=== PATIENT | female | born 1995 | race Caucasian/White ===

== ENCOUNTER 2016-03-10 09:06 | Outpatient (CLI) ==
[2012-08-25 16:06] VITALS: TEMP 97.8
[2013-04-18 19:50] VITALS: BMI 19.3
== END 2016-03-10 09:07 | disposition home or self-care (01) ==
LOC: LAB 09:06
PROVIDERS: ATTEND Family Medicine
DX: R63.5 Abnormal weight gain (principal); Z83.49 Family history of other endocrine, nutritional and metabolic diseases
CPT/HCPCS: 36415; 84439; 84443; 84481

== ENCOUNTER 2016-06-30 14:41 | Outpatient (CLI) ==
[2012-08-25 16:06] VITALS: TEMP 97.8
[2013-04-18 19:50] VITALS: BMI 19.3
[2016-06-30 15:07] LABS: BASOPHILS % (AUTO) 0.8 % (0.0-3.0); EOSINOPHILS % (AUTO) 0.8 % (0.0-7.0); HEMATOCRIT 42.2 % (37.0-47.0); HEMOGLOBIN 14.3 g/dl (12.0-16.0); IMMATURE GRANULOCYTE % (AUTO) 0.5 % (0.0-5.0); LYMPHOCYTES # (AUTO) 1.2 K/uL (0.60-3.4); LYMPHOCYTES % (AUTO) 32.7 (10.0-50.0); MEAN CORPUSCULAR HEMOGLOBIN 29.5 pg (27.0-31.0); MEAN CORPUSCULAR HGB CONC 33.9 (31.8-35.4); MONOCYTES # (AUTO) 0.6 K/uL (0.4-2.0); MONOCYTES % (AUTO) 15.4 (0-10); NEUTROPHILS # (AUTO) 1.9 K/ul (2.0-6.9); NEUTROPHILS % (AUTO) 49.8; PLATELET COUNT 216 10^3/uL (140-440); RED BLOOD COUNT 4.85 10^6/ul (4.20-5.40); WHITE BLOOD COUNT 3.76 K/ul (4.6-10.2)
[2016-06-30 15:19] LABS: ALBUMIN 3.4 g/dL (3.7-5.6); ANION GAP 11.5; BILIRUBIN,TOTAL 0.33 mg/dL (0.60-1.40); BUN/CREATININE RATIO 12.65; CALCIUM 8.8 mg/dL (8.2-10.2); CREATININE 0.79 mg/dL (0.60-1.30); POTASSIUM 3.5 mmol/L (3.5-5.10); TOTAL PROTEIN 6.8 g/dL (6.4-8.2)
== END 2016-06-30 14:42 | disposition home or self-care (01) ==
LOC: LAB 14:41
PROVIDERS: ATTEND Family Medicine
DX: N39.0 Urinary tract infection, site not specified (principal); M54.9 Dorsalgia, unspecified; R10.9 Unspecified abdominal pain
CPT/HCPCS: 36415; 80053; 85025

== ENCOUNTER 2017-01-25 17:56 | Outpatient (CLI) ==
[2012-08-25 16:06] VITALS: TEMP 97.8
[2013-04-18 19:50] VITALS: BMI 19.3
[2017-01-25 18:23] LABS: BILIRUBIN,URINE Negative (NEGATIVE); KETONES,URINE Negative (NEGATIVE); LEUKOCYTE ESTERASE ,URINE Negative (NEGATIVE); NITRITE,URINE Negative (NEGATIVE); PH,URINE 6.5 (5-9); PROTEIN,URINE Negative (NEGATIVE); URINE, BLOOD 2+ (NEGATIVE)
[2017-01-25 18:31] LABS: ADD URINE MICROSCOPIC YES
[2017-01-25 18:32] LABS: BACTERIA,URINE TRACE (NOT PRESENT)
== END 2017-01-25 17:57 | disposition home or self-care (01) ==
LOC: LAB 17:56
DX: N39.0 Urinary tract infection, site not specified (principal)
CPT/HCPCS: 81001; 87086

== ENCOUNTER 2017-10-24 20:26 | Emergency (ER) ==
[2017-10-24 20:34] VITALS: BP 130/80; TEMP 97.5; BMI 26.9
[2017-10-24] MEDS ORDERED: ATIVAN PO STA (20:59)
--- NOTE | 2017-10-24 22:18 | ED.PDOC ---
General ED Provider: Dr. CLAY ANN-ER Chief Complaint: Non-specific Complaint Stated Complaint: my heart is racing Time Seen by Physician: 20:30 Mode of Arrival: Walk-In Information Source: Patient, Family Exam Limitations: No limitations Primary Care Provider: GABRIEL SETH Nursing and Triage Documentation Reviewed and Agree: Yes Does patient meet sepsis criteria?: No System Inflammatory Response Syndrome: Not Applicable Sepsis Protocol: For patient's 13 years and over: Temp is 96.8 and below OR 101 and greater Pulse >90 BPM Resp >20/minute Acutely Altered Mental Status Are patient's symptoms suggestive of a new infection, such as: -Pneumonia -Skin, Soft Tissue -Endocarditis -UTI -Bone, Joint Infection -Implantable Device -Acute Abdominal Infection -Wound Infection -Meningitis -Blood Stream Catheter Infection -Unknown Psychological Complaint Exam - Psychiatric Complaint/Exam Patient Complains Of: Present: Other Onset/Duration: today Symptoms Are: Still present Timing: Constant Initial Severity: Mild Current Severity: Mild Character: Present: Fearful, Anxious Aggravating: Reports: None Associated Signs And Symptoms: Denies: Hostile, Confused, Hallucinating, Paranoid behavior, Sleep disturbance, Appetite change Completed Suicide Risk Factors: None Patient Accompanied By: Family Patient In Custody Of Police: No Social Withdrawal Present: No Social Isolation Present: No Prior Suicide Attempt: No Injury From Prior Suicide Attempt: No Related Surgical History: Reports: None Patient Uncooperative For Exam: No Mood: Present: Anxious Appearance: Present: Clean Thought Process: Present: Logical Insight: Present: Good Memory: Intact Judgement: Normal Danger To Others: No Patient Medically Stable For: Psych evaluation Differential Diagnoses: Anxiety Review of Systems - Review Of Systems Constitutional: Reports: No symptoms Eyes: Reports: No symptoms Ears, Nose, Mouth, Throat: Reports: No symptoms Respiratory: Reports: No symptoms Cardiac: Reports: Lightheadedness GI: Reports: No symptoms : Reports: No symptoms Musculoskeletal: Reports: No symptoms Skin: Reports: No symptoms Neurological: Reports: Anxiety Endocrine: Reports: No symptoms Hematologic/Lymphatic: Reports: No symptoms All Other Systems: Reviewed and Negative Past Medical History - Past Medical History Previously Healthy: No Endocrine: Reports: Unknown Cardiovascular: Reports: Unknown Respiratory: Reports: Unknown Hematological: Reports: Unknown Gastrointestinal: Reports: Unknown Genitourinary: Reports: Unknown Neuro/Psych: Reports: Unknown Musculoskeletal: Reports: Unknown Cancer: Reports: Unknown Last Menstrual Period: 4 days ago - Surgical History General Surgical History: Reports: Unknown - Family History Family History: Reports: Unknown - Social History Smoking Status: Never smoker Hx Substance Use: No Alcohol Screening: Occasionally - Immunizations Tetanus Shot up to Date: Yes Physical Exam - Physical Exam Appearance: Well-appearing, No pain distress, Well-nourished Eyes: BONG, EOMI, Conjunctiva clear ENT: Ears normal, Nose normal, Oropharynx normal Respiratory: Airway patent Cardiovascular: RRR, Pulses normal, No rub, No murmur GI/: Soft Musculoskeletal: Normal strength, ROM intact, No edema, No calf tenderness Skin: Warm, Dry, Normal color Neurological: Sensation intact, Motor intact, Reflexes intact, Cranial nerves intact, Alert, Oriented Psychiatric: Affect appropriate, Mood appropriate, Anxious Re-Evaluation - Re-Evaluation Time of Re-Evaluation: 22:18 Status: Improved Vital Signs Stable: Yes Pain Level: 0 Lungs: Clear Skin: Warm and Dry Neuro: Alert and Oriented X3 CV: RRR Critical Care Note - Critical Care Note Total Time (mins): 0 Course - Course Hematology/Chemistry: 10/24/17 21:02 10/24/17 21:02 Orders, Labs, Meds: Lab Review 10/24/17 10/24/17 10/24/17 20:00 20:00 20:00 WBC RBC Hgb Hct MCV MCH MCHC RDW Coeff of June Plt Count Immature Gran % (Auto) Neut % (Auto) Lymph % (Auto) [place] % (Auto) Eos % (Auto) Baso % (Auto) Immature Gran # (Auto) Neut # (Auto) Lymph # (Auto) [place] # (Auto) Eos # (Auto) Baso # (Auto) D-Dimer (Manual) Sodium Potassium Chloride Carbon Dioxide Anion Gap BUN Creatinine Estimated GFR (MDRD) BUN/Creatinine Ratio Glucose Calcium Magnesium Total Bilirubin AST ALT Alkaline Phosphatase Total Protein Albumin Globulin Albumin/Globulin Ratio TSH Free T4 Urine Color Yellow Urine Clarity Clear Urine pH 6.5 Ur Specific [place] 1.020 Urine Protein Negative Urine Glucose (UA) Negative Urine Ketones Negative Urine Blood 1+ Urine Nitrite Negative Urine Bilirubin Negative Urine Urobilinogen 0.2 Ur Leukocyte Esterase Negative Urine Microscopic RBC 2-5 Urine Microscopic WBC 0-2 Ur Squamous Epith Cells 2-5 Urine Test Negative Urine Opiates Screen Negative Ur Oxycodone Screen Negative Urine Methadone Screen Negative Ur Propoxyphene Screen Negative Ur Barbiturates Screen Negative U Tricyclic Antidepress Negative Ur Phencyclidine Scrn Negative Ur Amphetamine Screen Negative U Methamphetamines Scrn Negative U Benzodiazepines Scrn Negative Urine Cocaine Screen Negative U Cannabinoids Screen Negative 10/24/17 10/24/17 10/24/17 21:02 21:02 21:02 WBC 7.76 RBC 4.50 Hgb 13.5 Hct 40.0 MCV 88.9 MCH 30.0 MCHC 33.8 RDW Coeff of June 12.2 Plt Count 255 Immature Gran % (Auto) 0.6 Neut % (Auto) 46.9 Lymph % (Auto) 40.3 [place] % (Auto) 8.0 Eos % (Auto) 3.6 Baso % (Auto) 0.6 Immature Gran # (Auto) 0.1 Neut # (Auto) 3.6 Lymph # (Auto) 3.1 [place] # (Auto) 0.6 Eos # (Auto) 0.3 Baso # (Auto) 0.1 D-Dimer (Manual) 210.15 Sodium 139 Potassium 3.5 Chloride 104 Carbon Dioxide 28 Anion Gap 10.5 BUN 11 Creatinine 0.67 Estimated GFR (MDRD) 112.00 BUN/Creatinine Ratio 16.41 Glucose 109 Calcium 9.1 Magnesium 2.1 Total Bilirubin 0.2 AST 15 ALT 12 Alkaline Phosphatase 104 H Total Protein 6.7 Albumin 3.3 L Globulin 3.4 Albumin/Globulin Ratio 0.97 TSH 1.448 Free T4 0.96 Urine Color Urine Clarity Urine pH Ur Specific [place] Urine Protein Urine Glucose (UA) Urine Ketones Urine Blood Urine Nitrite Urine Bilirubin Urine Urobilinogen Ur Leukocyte Esterase Urine Microscopic RBC Urine Microscopic WBC Ur Squamous Epith Cells Urine Test Urine Opiates Screen Ur Oxycodone Screen Urine Methadone Screen Ur Propoxyphene Screen Ur Barbiturates Screen U Tricyclic Antidepress Ur Phencyclidine Scrn Ur Amphetamine Screen U Methamphetamines Scrn U Benzodiazepines Scrn Urine Cocaine Screen U Cannabinoids Screen Orders Category Date Time Status EKG-(ED ONLY) Stat CARDIO 10/24/17 20:58 Ordered Preparer [ED CARPENTER FORM APPLIED] .ONCE EMERGENCY 10/24/17 20:59 Active CBC W/ AUTO DIFF Stat LAB 10/24/17 21:02 Completed COMPREHENSIVE METABOLIC PANEL Stat LAB 10/24/17 21:02 Completed D-DIMER Stat LAB 08/19/18 21:02 Completed FREE T4 (FREE THYROXINE) Stat LAB 10/24/17 21:02 Completed MAGNESIUM Stat LAB 10/24/17 21:02 Completed TSH [THYROID STIMULATING HORMONE] Stat LAB 10/24/17 21:02 Completed URINALYSIS C & S IF INDICATED Stat LAB 10/24/17 20:00 Completed URINE DRUG SCREEN (RAPID FOR ED) [DRUG SCREEN, URINE, LAB 10/24/17 20:00 Completed RAPID] Stat URINE Stat LAB 10/24/17 20:00 Completed Lorazepam [Ativan] MEDS 10/24/17 20:59 Discontinued 1 mg PO ONCE STA Medications Discontinued Medications Generic Name Dose Route Start Last Admin Trade Name Freq PRN Reason Stop Dose Admin Lorazepam 1 mg 10/24/17 20:59 10/24/17 21:04 Ativan PO 10/24/17 21:00 1 mg ONCE STA Administration Vital Signs: Temp Pulse Resp BP Pulse Ox 10/24/17 20:27 97.5 F L 91 H 20 130/80 98 Departure - Departure Time of Disposition: 22:18 Disposition: HOME SELF-CARE Discharge Problem: Anxiety Instructions: Generalized Anxiety Disorder (ED) Condition: Good Pt referred to PMD for follow-up: Yes IPMP verified?: No Additional Instructions: ativan 1mg daily prn anxiety#10--f/u with dr seth Allergies/Adverse Reactions: Allergies No Known Allergies Allergy (Verified 10/24/17 20:33) Home Medications: Ambulatory Orders Methylphenidate HCl [Concerta] 36 mg PO DAILY 08/25/12 Fluoxetine HCl [Prozac] 40 mg PO DAILY 10/24/17 Levonorgestrel-Ethin Estradiol [Lutera-28 Tablet] 1 each PO DAILY 10/24/17 Sulfamethoxazole/Trimethoprim [Bactrim Ds Tablet] 1 tab PO DAILY 10/24/17 Disposition Discussed With: Patient, Family
== END 2017-10-24 22:22 | disposition home or self-care (01) ==
LOC: ED 20:26
DX: F41.9 Anxiety disorder, unspecified (principal)
CPT/HCPCS: 36415; 80053; 80306; 81001; 81025; 83735; 84439; 84443; 85025; 85379; 93005; 93010; 99283

== ENCOUNTER 2018-01-08 00:39 | Emergency (ER) ==
[2018-01-08 00:41] VITALS: BP 129/80; TEMP 97.3; BMI 25.0
[2018-01-08] MEDS ORDERED: NORFLEX IM STA (00:52)
[2018-01-08] MEDS ORDERED: TORADOL IM STA (00:52)
[2018-01-08] MEDS ORDERED: BENTYL IM STA (00:55)
--- NOTE | 2018-01-08 01:55 | DI ---
EXAM: PA and lateral views of the chest. HISTORY: Chest wall pain. FINDINGS: There is dextroscoliosis of the thoracolumbar spine. The visualized bones are intact. The cardiac silhouette and pulmonary vasculature are within normal limits. The costophrenic angles are c lear. No infiltrate or consolidation. No pneumothorax. Impression: No acute cardiopulmonary disease. Dextroscoliosis of the thoracolumbar spine.
--- NOTE | 2018-01-08 01:56 | DI ---
EXAM: Abdomen one-view HISTORY: Abdomenal Pain FINDINGS: Normal bowel gas pattern. No pathologic calcifications. No large free intraperitoneal ga s. No abundance of retained colonic stool. Skeleton appears normal. IMPRESSION: Negative exam.
--- NOTE | 2018-01-08 02:34 | ED.PDOC ---
General ED Provider: Dr. CLAY ANN-ER Chief Complaint: Chest Wall Injury/Pain Stated Complaint: im hurting Time Seen by Physician: 00:40 Mode of Arrival: Walk-In Information Source: Patient, Family Exam Limitations: No limitations Primary Care Provider: GABRIEL SETH Nursing and Triage Documentation Reviewed and Agree: Yes Does patient meet sepsis criteria?: No System Inflammatory Response Syndrome: Not Applicable Sepsis Protocol: For patient's 13 years and over: Temp is 96.8 and below OR 101 and greater Pulse >90 BPM Resp >20/minute Acutely Altered Mental Status Are patient's symptoms suggestive of a new infection, such as: -Pneumonia -Skin, Soft Tissue -Endocarditis -UTI -Bone, Joint Infection -Implantable Device -Acute Abdominal Infection -Wound Infection -Meningitis -Blood Stream Catheter Infection -Unknown GI Complaint Exam - Abdominal Pain Complaint/Exam Onset: Gradual Duration: several min Symptoms Are: Still present Timing: Constant Initial Severity: Mild Current Severity: Mild Location of Pain: Discrete, Epigastric Character: Reports: Dull, Aching, Cramping, Colicky Aggravating: Reports: Movement, Deep breaths Alleviating: Reports: Spontaneous resolution Associated Signs and Symptoms: Denies: Diaphoresis, Fever, Cough, Chest pain, Dizziness, Back pain, Constipation, Blood in stool, Dysuria, Urinary frequency, Decreased urine output, Decreased appetite, Vaginal bleeding, Vaginal discharge , Nausea, Vomiting, Diarrhea, Sore throat, Decreased activity Abdominal Findings: Present: Rebound tenderness Differential Diagnoses: Constipation, Pancreatitis Quality Indicator For Non-Traumatic Chest Pain/Syncope: EKG Performed Review of Systems - Review Of Systems Constitutional: Reports: No symptoms Eyes: Reports: No symptoms Ears, Nose, Mouth, Throat: Reports: No symptoms Respiratory: Reports: No symptoms Cardiac: Reports: Chest pain GI: Reports: No symptoms : Reports: No symptoms Musculoskeletal: Reports: No symptoms Skin: Reports: No symptoms Neurological: Reports: No symptoms Endocrine: Reports: No symptoms Hematologic/Lymphatic: Reports: No symptoms All Other Systems: Reviewed and Negative Past Medical History - Past Medical History Previously Healthy: No Endocrine: Reports: Unknown Cardiovascular: Reports: Unknown Respiratory: Reports: Unknown Hematological: Reports: Unknown Gastrointestinal: Reports: Unknown Genitourinary: Reports: Unknown Neuro/Psych: Reports: Unknown Musculoskeletal: Reports: Unknown Cancer: Reports: Unknown Last Menstrual Period: 1 week ago - Surgical History General Surgical History: Reports: Unknown - Family History Family History: Reports: Unknown - Social History Smoking Status: Never smoker Hx Substance Use: No Alcohol Screening: None - Immunizations Tetanus Shot up to Date: Yes Physical Exam - Physical Exam Appearance: Well-appearing, No pain distress, Well-nourished Pain Distress: Mild Eyes: BONG, EOMI, Conjunctiva clear ENT: Ears normal, Nose normal, Oropharynx normal Neck: Supple Respiratory: Airway patent, Breath sounds clear, Breath sounds equal, Respirations nonlabored Cardiovascular: RRR, Pulses normal, No rub, No murmur GI/: Soft Musculoskeletal: Normal strength, ROM intact, No edema, No calf tenderness Skin: Warm, Dry, Normal color Neurological: Sensation intact, Motor intact, Reflexes intact, Cranial nerves intact, Alert, Oriented Psychiatric: Affect appropriate, Mood appropriate Interpretation - Radiology Interpretation Radiology Interpretation By: Radiologist Radiology Results: Negative Exam Interpreted: CXR Re-Evaluation - Re-Evaluation Time of Re-Evaluation: 02:34 Status: Improved Vital Signs Stable: Yes Pain Level: 0 Appearance: NAD Lungs: Clear Skin: Warm and Dry Neuro: Alert and Oriented X3 CV: RRR Critical Care Note - Critical Care Note Total Time (mins): 0 Course - Course Hematology/Chemistry: 01/08/18 01:05 01/08/18 01:05 Orders, Labs, Meds: Lab Review 01/08/18 01/08/18 01/08/18 01:00 01:05 01:05 WBC 7.98 RBC 4.72 Hgb 14.0 Hct 41.1 MCV 87.1 MCH 29.7 MCHC 34.1 RDW Coeff of June 12.2 Plt Count 285 Immature Gran % (Auto) 0.9 Neut % (Auto) 48.9 Lymph % (Auto) 32.5 [place] % (Auto) 10.7 H Eos % (Auto) 6.0 Baso % (Auto) 1.0 Immature Gran # (Auto) 0.1 Neut # (Auto) 3.9 Lymph # (Auto) 2.6 [place] # (Auto) 0.9 Eos # (Auto) 0.5 Baso # (Auto) 0.1 ESR 11 D-Dimer (Manual) Sodium 137.6 Potassium 3.95 Chloride 100.1 Carbon Dioxide 31.8 H Anion Gap 9.65 BUN 9.8 Creatinine 0.59 L Estimated GFR (MDRD) 129.00 BUN/Creatinine Ratio 16.61 Glucose 98.4 Calcium 9.49 Total Bilirubin 0.36 AST 30.9 ALT 26.2 Alkaline Phosphatase 90.9 Total Protein 7.84 Albumin 4.52 Globulin 3.32 Albumin/Globulin Ratio 1.36 Amylase < 30.0 L Lipase 89.5 Serum , Qual Urine Color Yellow Urine Clarity Clear Urine pH 6.5 Ur Specific [place] 1.010 Urine Protein Negative Urine Glucose (UA) Negative Urine Ketones Negative Urine Blood 1+ Urine Nitrite Negative Urine Bilirubin Negative Urine Urobilinogen 0.2 Ur Leukocyte Esterase Negative Urine Microscopic RBC 5-10 Urine Microscopic WBC 0-2 Ur Squamous Epith Cells 0-2 Urine Bacteria Trace 01/08/18 01/08/18 01:05 01:05 WBC RBC Hgb Hct MCV MCH MCHC RDW Coeff of June Plt Count Immature Gran % (Auto) Neut % (Auto) Lymph % (Auto) [place] % (Auto) Eos % (Auto) Baso % (Auto) Immature Gran # (Auto) Neut # (Auto) Lymph # (Auto) [place] # (Auto) Eos # (Auto) Baso # (Auto) ESR D-Dimer (Manual) 209.72 Sodium Potassium Chloride Carbon Dioxide Anion Gap BUN Creatinine Estimated GFR (MDRD) BUN/Creatinine Ratio Glucose Calcium Total Bilirubin AST ALT Alkaline Phosphatase Total Protein Albumin Globulin Albumin/Globulin Ratio Amylase Lipase Serum , Qual Negative Urine Color Urine Clarity Urine pH Ur Specific [place] Urine Protein Urine Glucose (UA) Urine Ketones Urine Blood Urine Nitrite Urine Bilirubin Urine Urobilinogen Ur Leukocyte Esterase Urine Microscopic RBC Urine Microscopic WBC Ur Squamous Epith Cells Urine Bacteria Orders Category Date Time Status EKG-(ED ONLY) Stat CARDIO 01/08/18 00:51 Ordered AMYLASE Stat LAB 01/08/18 01:05 Completed CBC W/ AUTO DIFF Stat LAB 01/08/18 01:05 Completed COMPREHENSIVE METABOLIC PANEL Stat LAB 01/08/18 01:05 Completed D-DIMER Stat LAB 01/08/18 01:05 Completed ESR Stat LAB 01/08/18 01:05 Completed LIPASE Stat LAB 01/08/18 01:05 Completed SERUM Stat LAB 01/08/18 01:05 Completed URINALYSIS C & S IF INDICATED Stat LAB 01/08/18 01:00 Completed Dicyclomine Inj [Bentyl] MEDS 01/08/18 00:55 Discontinued 10 mg IM ONCE STA Ketorolac Tromethamine [Toradol] MEDS 01/08/18 00:52 Discontinued 60 mg IM ONCE STA Orphenadrine Citrate [Norflex] MEDS 01/08/18 00:52 Discontinued 60 mg IM ONCE STA ABDOMEN 1 VIEW Stat RADS 01/08/18 00:51 Completed CHEST, 2 VIEWS PA & LAT Stat RADS 01/08/18 00:51 Completed Medications Discontinued Medications Generic Name Dose Route Start Last Admin Trade Name Crystal PRN Reason Stop Dose Admin Dicyclomine HCl 10 mg 01/08/18 00:55 01/08/18 01:15 Bentyl IM 01/08/18 00:56 10 mg ONCE STA Administration Ketorolac Tromethamine 60 mg 01/08/18 00:52 01/08/18 01:15 Toradol IM 01/08/18 00:53 60 mg ONCE STA Administration Orphenadrine Citrate 60 mg 01/08/18 00:52 01/08/18 01:15 Norflex IM 01/08/18 00:53 60 mg ONCE STA Administration Vital Signs: Temp Pulse Resp BP Pulse Ox 01/08/18 00:39 97.3 F L 91 H 18 129/80 97 Departure - Departure Time of Disposition: 02:34 Disposition: HOME SELF-CARE Discharge Problem: Chest wall pain Instructions: Chest Wall Pain (ED) Condition: Good Pt referred to PMD for follow-up: Yes IPMP verified?: No Additional Instructions: return prn Allergies/Adverse Reactions: Allergies No Known Allergies Allergy (Verified 01/08/18 00:42) Home Medications: Ambulatory Orders Methylphenidate HCl [Concerta] 36 mg PO DAILY 08/25/12 Fluoxetine HCl [Prozac] 40 mg PO DAILY 10/24/17 Levonorgestrel-Ethin Estradiol [Lutera-28 Tablet] 1 each PO DAILY 10/24/17 Disposition Discussed With: Patient, Family
== END 2018-01-08 07:01 | disposition home or self-care (01) ==
LOC: ED 00:39
DX: R07.89 Other chest pain (principal)
CPT/HCPCS: 36415; 80053; 81001; 82150; 83690; 84703; 85025; 85379; 85651; 93005; 93010; 96372; 99283

== ENCOUNTER 2025-01-07 06:15 | Observation (INO) ==
--- NOTE | 2025-01-07 06:57 | ED.PDOC ---
General <JAY LEAL MD - Last Filed: 01/07/25 07:09> [facility] ED Provider: Dr. JAY LEAL MD Chief Complaint: Abdominal Pain Stated Complaint: 29 yo WF with upper abdominal pain and lower back pain since 7 PM. Pain is constant and stabbing and acute onset. Migrated or radiated to R lateral upper quadrant. Some nausea but no vomiting. No chest pain, cough or fever. Had some bloating and pain 2 weeks ago. No relief with Gas-X. Previous malorie and was seen in this ER for abdominal pain Apr [address] abdomen and pelvis, except for 2.8 cm simple cyst in the R ovary. Labs then showed mildly elevated lipase, mild elevated LFT. She had seen ROMY Ludwig and had EGD that was not remarkable per family and had seen the provider after the ER visit and given acid reflux medicine. No lower abdominal pain, vaginal DC or urinary sx. Lower back pain also yesterday and hx of scoliosis ( her back pain has improved from the past). Time Seen by Provider: 01/07/25 06:34 Mode of Arrival: Walk-In Information Source: Patient Exam Limitations: No limitations Primary Care Provider: EDYTA PHELPS Referred to ED by: Other (Self) Nursing and Triage Documentation Reviewed and Agree: Yes Opioid Naive vs. Tolerant Does Patient Take Opioids?: No What is Opioid Naive?: *Opioid Naive implies the patient is not already taking opioids or not chronically receiving opioids on a daily basis. *PRN dosing is not "usually" associated with tolerance. *Patients are at higher risk of over-sedation and aspiration. What is Opioid Tolerant?: *Opioid Tolerance implies less than the expected response to an opioid. *Acquired tolerance is defined by the patient taking 60mg of oral morphine daily (or equianalgesic dose of another opioid) for 1 week or more. *Often associated with chronic pain. *May take more than usual dose to achieve desired pain control. Review of Systems <JAY LEAL MD - Last Filed: 01/07/25 07:09> Review Of Systems Constitutional: Denies Chills, Diaphoresis or Fever Eyes: Reports No symptoms Ears, Nose, Mouth, Throat: Reports No symptoms Respiratory: Reports No symptoms Cardiac: Reports No symptoms GI: Reports Abdominal pain and Nausea; Denies Diarrhea or Vomiting : Reports No symptoms; Denies Dysuria or Discharge Musculoskeletal: Reports Back pain; Denies Joint pain Skin: Reports No symptoms Neurological: Denies Headache [facility] <JAY LEAL MD - Last Filed: 01/07/25 07:09> [facility] Medical History (Updated 01/07/25 @ 08:30 by PAUL ADAMSON MD) TMJ (temporomandibular joint disorder) M26.609 - Unspecified temporomandibular joint disorder, unspecified side (ICD-10) Social History Smoking and tobacco status: Never smoker Female Reproductive History Menstrual Hx Hysterectomy: No Hx Tubal Ligation: No Physical Exam <JAY LEAL MD - Last Filed: 01/07/25 07:09> Physical Exam Appearance: Reports Obese Ill-appearing: None Pain Distress: Moderate Eyes: Reports EOMI ENT: Reports Ears normal and Oropharynx normal Neck: Supple Respiratory: Reports Airway patent, Breath sounds equal and Respirations nonlabored Cardiovascular: Reports RRR, Pulses normal, No rub and No murmur GI/: Reports Soft, Bowel sounds normal, No Organomegaly, Tender (RUQ with some guarding. ) and Hepatomegaly (?) Musculoskeletal: Reports Normal strength Skin: Reports Warm and Dry Neurological: Reports Sensation intact and Motor intact Psychiatric: Reports Affect appropriate and Mood appropriate <PAUL ADAMSON MD - Last Filed: 01/07/25 08:30> Physician Progress Note Physician Progress Note: Patient is a 29-year-old female is presenting to the Emergency Department for evaluation of acute recurrent epigastric abdominal pain that radiates to the right upper quadrant with associated nausea but no episodes of emesis. Patient was initially evaluated by Dr. Leal who ordered the initial laboratory screening tests. They discussed that they believe the symptoms would likely be secondary to pancreatitis versus peptic ulcer disease versus choledocholithiasis. I, Dr. Adamson, took over seeing the patient at 7 AM. I [address] with Dr. Leal's initial laboratory order set and that there was no immediate need for imaging at that time. The labs did return positive for a lipase level of around 1800 and patient's symptoms are certainly consistent with pancreatitis as well. Should be noted that she did have a mild AST elevation of 75 and that there was a AST to ALT ratio of 2:1 present although the patient denies any alcohol use. She does have a history of cholecystectomy although a stone in her CBD is still a possibility and I do feel that it would be prudent to obtain right upper quadrant ultrasound imaging tomorrow morning when ultrasound is present in the hospital since she will be getting admitted for treatment of this acute pancreatitis. I did add on a triglyceride level which was within normal limits. Also has no hypercalcemia that would explain her pancreatitis either. No new medications or recent viral illnesses that could be the underlying etiology either. Patient was started on IV fluids while here in the emergency department as well as given gram of Tylenol IV for treatment of her pain. Patient was amenable to being admitted to the observation unit for further IV fluids for treatment of her acute pancreatitis as well as possible right upper quadrant ultrasound imaging in the morning. Case was discussed with the on-call hospitalist who accepted. Course <JAY LEAL MD - Last Filed: 01/07/25 07:09> Course 01/07/25 06:59 01/07/25 06:59 Orders, Labs, Meds: Lab Review 01/07/25 01/07/25 06:59 07:56 WBC 5.89 RBC 4.51 Hgb 13.1 Hct 40.9 MCV 90.7 MCH 29.0 MCHC 32.0 RDW Coeff of June 12.4 Plt Count 276 Immature Gran % (Auto) 0.3 Neut % (Auto) 54.3 Lymph % (Auto) 34.5 Dougherty % (Auto) 9.2 Eos % (Auto) 1.0 Baso % (Auto) 0.7 Neut # (Auto) 3.2 Lymph # (Auto) 2.0 Dougherty # (Auto) 0.5 Eos # (Auto) 0.1 Baso # (Auto) 0.0 Immature Gran # (Auto) 0.0 Sodium 135.8 Potassium 4.06 Chloride 102.5 Carbon Dioxide 29.6 Anion Gap 7.76 BUN 7.2 Creatinine 0.69 Estimated GFR (MDRD) 101.00 BUN/Creatinine Ratio 10.43 Glucose 104.1 Calcium 9.00 Total Bilirubin 0.66 AST 75.2 H ALT 34.0 Alkaline Phosphatase 92.8 Total Protein 7.65 Albumin 4.26 Globulin 3.39 Albumin/Globulin Ratio 1.25 Triglycerides 63.3 Lipase 1792.5 H Orders Category Date Time Status NPO REMINDER: LAB TEST ONCE CARE 01/07/25 07:54 Completed Saline Lock [ED IV/MEDIPORT/POWERPORT] .ONCE EMERGENCY 01/07/25 06:44 Active CBC W/ AUTO DIFF Stat LAB 01/07/25 06:59 Completed CHLAMYDIA/GC AMPLIFICATION Stat LAB 01/07/25 06:44 Ordered CMP [COMPREHENSIVE METABOLIC PANEL] Stat LAB 01/07/25 06:59 Completed LIPASE Stat LAB 01/07/25 06:59 Completed TRIGLYCERIDES Stat LAB 01/07/25 07:56 Completed URINALYSIS C & S IF INDICATED Stat LAB 01/07/25 06:34 Uncollected URINE Stat LAB 01/07/25 06:34 Uncollected 0.9 % Sodium Chloride [Saline Flush] Meds 01/07/25 06:44 Active 1 syr IVF PRN PRN Acetaminophen Meds 01/07/25 06:44 Discontinued 1,000 mg in 100 ml IV ONCE Pantoprazole Sodium [Protonix] Meds 01/07/25 06:44 Discontinued 40 mg IVP ONCE ONE Sodium Chloride 0.9% [Sodium Chloride] 1,000 ml Meds 01/07/25 07:22 Active IV BOLUS Medications Generic Name Dose Route Start Last Admin Trade Name Freq PRN Reason Stop Dose Admin Sodium Chloride 1,000 mls @ 1,000 mls/hr 01/07/25 07:22 Sodium Chloride IV 01/07/25 08:21 BOLUS ONE Sodium Chloride 1 syr 01/07/25 06:44 0.9% Sodium Chloride 10 Ml Disp.Syrin IVF PRN PRN To flush IV Discontinued Medications Generic Name Dose Route Start Last Admin Trade Name Freq PRN Reason Stop Dose Admin Acetaminophen 1,000 mg in 100 mls @ 400 mls/hr 01/07/25 06:44 01/07/25 07:16 Acetaminophen IV 01/07/25 06:58 400 mls/hr ONCE ONE Administration Pantoprazole Sodium 40 mg 01/07/25 06:44 01/07/25 07:16 Pantoprazole Sodium 40 Mg Vial IVP 01/07/25 06:45 40 mg ONCE ONE Administration Since she first arrived near shift changes, patient seen initially and labs order and case signed out to Juan Diego Vital Signs: Temp Pulse Resp BP Pulse Ox 01/07/25 06:25 97.5 F L 94 18 145/95 H 100 <PAUL ADAMSON MD - Last Filed: 01/07/25 08:30> Course Orders, Labs, Meds: Lab Review 01/07/25 01/07/25 06:59 07:56 WBC 5.89 RBC 4.51 Hgb 13.1 Hct 40.9 MCV 90.7 MCH 29.0 MCHC 32.0 RDW Coeff of June 12.4 Plt Count 276 Immature Gran % (Auto) 0.3 Neut % (Auto) 54.3 Lymph % (Auto) 34.5 Dougherty % (Auto) 9.2 Eos % (Auto) 1.0 Baso % (Auto) 0.7 Neut # (Auto) 3.2 Lymph # (Auto) 2.0 Dougherty # (Auto) 0.5 Eos # (Auto) 0.1 Baso # (Auto) 0.0 Immature Gran # (Auto) 0.0 Sodium 135.8 Potassium 4.06 Chloride 102.5 Carbon Dioxide 29.6 Anion Gap 7.76 BUN 7.2 Creatinine 0.69 Estimated GFR (MDRD) 101.00 BUN/Creatinine Ratio 10.43 Glucose 104.1 Calcium 9.00 Total Bilirubin 0.66 AST 75.2 H ALT 34.0 Alkaline Phosphatase 92.8 Total Protein 7.65 Albumin 4.26 Globulin 3.39 Albumin/Globulin Ratio 1.25 Triglycerides 63.3 Lipase 1792.5 H Orders Category Date Time Status NPO REMINDER: LAB TEST ONCE CARE 01/07/25 07:54 Completed Saline Lock [ED IV/MEDIPORT/POWERPORT] .ONCE EMERGENCY 01/07/25 06:44 Active CBC W/ AUTO DIFF Stat LAB 01/07/25 06:59 Completed CHLAMYDIA/GC AMPLIFICATION Stat LAB 01/07/25 06:44 Ordered CMP [COMPREHENSIVE METABOLIC PANEL] Stat LAB 01/07/25 06:59 Completed LIPASE Stat LAB 01/07/25 06:59 Completed TRIGLYCERIDES Stat LAB 01/07/25 07:56 Completed URINALYSIS C & S IF INDICATED Stat LAB 01/07/25 06:34 Uncollected URINE Stat LAB 01/07/25 06:34 Uncollected 0.9 % Sodium Chloride [Saline Flush] Meds 01/07/25 06:44 Active 1 syr IVF PRN PRN Acetaminophen Meds 01/07/25 06:44 Discontinued 1,000 mg in 100 ml IV ONCE Pantoprazole Sodium [Protonix] Meds 01/07/25 06:44 Discontinued 40 mg IVP ONCE ONE Sodium Chloride 0.9% [Sodium Chloride] 1,000 ml Meds 01/07/25 07:22 Active IV BOLUS Medications Generic Name Dose Route Start Last Admin Trade Name Freq PRN Reason Stop Dose Admin Sodium Chloride 1,000 mls @ 1,000 mls/hr 01/07/25 07:22 Sodium Chloride IV 01/07/25 08:21 BOLUS ONE Sodium Chloride 1 syr 01/07/25 06:44 0.9% Sodium Chloride 10 Ml Disp.Syrin IVF PRN PRN To flush IV Discontinued Medications Generic Name Dose Route Start Last Admin Trade Name Freq PRN Reason Stop Dose Admin Acetaminophen 1,000 mg in 100 mls @ 400 mls/hr 01/07/25 06:44 01/07/25 07:16 Acetaminophen IV 01/07/25 06:58 400 mls/hr ONCE ONE Administration Pantoprazole Sodium 40 mg 01/07/25 06:44 01/07/25 07:16 Pantoprazole Sodium 40 Mg Vial IVP 01/07/25 06:45 40 mg ONCE ONE Administration Vital Signs: Temp Pulse Resp BP Pulse Ox 01/07/25 06:25 97.5 F L 94 18 145/95 H 100 Discharge Plan Discharge Patient Disposition: PLACED OBSERVATION Discharge Problem: Abdominal pain Did you review [place] [employer] for ALL controlled substances?: Not Applicable ED Provider: PAUL ADAMSON Condition: Stable
[2025-01-07 07:01] LABS: IMMATURE GRANULOCYTE # (AUTO) 0.0 (0.0-1.0); IMMATURE GRANULOCYTE % (AUTO) 0.3 % (0.0-5.0); RDW COEFFICIENT OF VARIATION 12.4 % (11.6-14.8)
[2025-01-07 07:11] LABS: CREATININE 0.69 mg/dL (0.60-1.30)
[2025-01-07] MEDS: ACETAMINOPHEN 1,000 MG/100 ML BAG IV ONE (07:16)
[2025-01-07] MEDS: PROTONIX IVP ONE (07:16)
[2025-01-07] MEDS: SODIUM CHLORIDE 1,000 ML IV ONE (08:19)
[2025-01-07 09:09] VITALS: BMI 32.1
[2025-01-07 09:35] LABS: GLUCOSE, URINE (UA) Negative (NEGATIVE); LEUKOCYTE ESTERASE ,URINE 2+ (NEGATIVE); URINE, BLOOD 1+ (NEGATIVE)
[2025-01-07 09:36] LABS: URINE PREGNANCY TEST NEGATIVE (NEGATIVE)
[2025-01-07] MEDS ORDERED: XANAX PO PRN (09:42)
[2025-01-07] MEDS: MORPHINE 2 MG/ML SYRINGE IVP PRN (10:30)
[2025-01-07] MEDS ORDERED: DILAUDID 1 MG/ML SYRINGE IVP PRN (10:43)
--- NOTE | 2025-01-07 11:09 | PCM ---
Date of Service Date Seen by Provider: 01/07/25 Time Seen by Provider: 10:45 Admit Day/Time Admission Date: 01/07/25 Admission Time: 09:24 Reason for Admission Chief Complaint: ACUTE PANCREATITIS Hospital Provider Hospital Provider: FRITZ MORENO, [facility] Primary Care Physician Primary Care Physician: EDYTA PHELPS History of Present Illness History of Present Illness: 29 year old female with pmhx of ADHD and anxiety presented to the ER last night with complaints of epigastric abdominal pain and lower back pain that started around 1900 last night. Patient stated pain began immediately upon finishing her [employer]. She took a zofran and some gas-x without any relief. Prior hx of cholecystectomy. ER workup revealed lipase 1792 consistent with pancreatitis. Triglycerides normal at 63. Patient denied any use of alcohol in the ER. She was started on IV fluids and given IV tylenol for the pain. Admitted to [facility] for observation. Currently patient describes the epigastric pain and low back as 8/10 and constant with intermittent sharp/stabbing pains. No nausea at present. Reports she has chronic diarrhea ever since her gallbladder was removed. Denies urinary or vaginal symptoms. Patient again denies any use of alcohol, states she last drank ~ 3 months ago. Urine negative. No fever or chills. Case Discussed With Case Discussed With: Patient's case was discussed with the ER Physicians, Dr. Adamson [facility] Medical History TMJ (temporomandibular joint disorder) M26.609 - Unspecified temporomandibular joint disorder, unspecified side (ICD-10) Surgical History History of cholecystectomy Z90.49 - Acquired absence of other specified parts of digestive tract (ICD- 10) Family History Other No known health problems Social History Smoking and tobacco status: Never smoker Allergies Allergies Allergy/AdvReac Type Severity Reaction Status Date / Time No Known Allergies Allergy Verified 01/07/25 06:29 Current Medications Home Medications Alprazolam (Alprazolam 0.5 Mg Tablet) 0.5 mg PO 3XD PRN PRN Reason: Anxiety Hydromorphone HCl (Hydromorphone Hcl 1 Mg/Ml Syringe) 1 mg IVP Q6HR PRN PRN Reason: Abdominal Pain Sodium Chloride (Sodium Chloride) 1,000 mls @ 125 mls/hr IV .Q8H FRANCOIS Ketorolac Tromethamine (Ketorolac Tromethamine 30 Mg/Ml Vial) 30 mg IVP Q8H PRN PRN Reason: Abdominal Pain Stop: 01/11/25 10:44 Non-Formulary Medication (Dextroamphetamine-Amphetamine [Adderall]) 30 mg PO DAILY FRANCOIS Sodium Chloride (0.9% Sodium Chloride 10 Ml Disp.Syrin) 1 syr IVF PRN PRN PRN Reason: To flush IV alprazolam 0.5 mg tablet 0.5 mg PO 3XD PRN anxiety 04/08/24 [History Confirmed 01/07/25] dextroamphetamine-amphetamine 30 mg tablet (Adderall) 30 mg PO DAILY 04/08/24 [History Confirmed 01/07/25] Opioid Naive vs. Tolerant Does Patient Take Opioids?: No Is Patient Opioid Naive?: Yes What is Opioid Naive?: *Opioid Naive implies the patient is not already taking opioids or not chronically receiving opioids on a daily basis. *PRN dosing is not "usually" associated with tolerance. *Patients are at higher risk of over-sedation and aspiration. Is Patient Opioid Tolerant?: No What is Opioid Tolerant?: *Opioid Tolerance implies less than the expected response to an opioid. *Acquired tolerance is defined by the patient taking 60mg of oral morphine daily (or equianalgesic dose of another opioid) for 1 week or more. *Often associated with chronic pain. *May take more than usual dose to achieve desired pain control. Review of Systems Constitutional: Denies Fever, Fatigue, Chills or Weakness Head: Reports Normocephalic and Atraumatic Eyes: Reports No symptoms Ears: Reports No symptoms Nose: Reports No symptoms Mouth: Reports No symptoms Throat: Reports No symptoms Cardiovascular: Reports No symptoms; Denies Chest pain Respiratory: Reports No symptoms; Denies Cough or Shortness of air Gastrointestinal: Reports Nausea, Diarrhea and Abdominal pain (epigastric); Denies Vomiting or Constipation Genitourinary: Reports No Symptoms; Denies Dysuria, Flank Pain, Vaginal Discharge or Pelvic Pain Musculoskeletal: Reports No symptoms Dermatologic: Denies Rashes or Skin Changes Endocrine: Reports No symptoms Hematology: Reports No symptoms Immunology: Reports No symptoms Neurological: Reports No symptoms Psychiatric: Reports Anxiety Physical examination Most Recent Vital Signs: Most Recent Vital Signs Temperature 98.2 F 01/07/25 10:00 Temperature Source Temporal Artery Scan 01/07/25 10:00 Temperature Source Temporal Artery Scan 01/07/25 06:25 Pulse Rate 90 01/07/25 10:00 Respiratory Rate 18 01/07/25 10:00 Blood Pressure 138/75 01/07/25 10:00 Blood Pressure Mean 96 01/07/25 10:00 Blood Pressure Left Arm 138/75 01/07/25 08:59 Blood Pressure Location Left Arm 01/07/25 10:00 Blood Pressure Position Sitting 01/07/25 10:00 O2 Sat by Pulse Oximetry 96 01/07/25 10:00 Oxygen Delivery Method Room Air 01/07/25 11:00 Height 5 ft 7 in 01/07/25 08:59 Weight 93 kg 01/07/25 08:59 Appearance: Positive Well-appearing, Well-nourished and Alert and Oriented x3 Skin: Positive Warm, Good Turgor and Good Color HEENT: Positive Normocephalic and Atraumatic Neck: Positive Supple; Negative Adenopathy Chest/Lungs: Positive Symmetrical With Equal Breath Sounds and Clear to Auscultation Bilaterally; Negative Rales, Rhonci or Wheezes Heart: Positive RRR and Pulses Normal GI/: Positive Soft, Bowel Sounds Normal and Tender (epigastric); Negative Mass or Rebound Tenderness Musculoskeletal: Positive Normal Gait and Station Extremities: Positive Not Examined Neurological: Positive Sensation Intact, Alert and Oriented Psychiatric: Positive Oriented x4, Appropriate Mood and Appropriate Affect Labs This Visit Labs This Visit: Labs This Visit 01/07/25 01/07/25 01/07/25 06:59 07:56 09:31 WBC 5.89 RBC 4.51 Hgb 13.1 Hct 40.9 MCV 90.7 MCH 29.0 MCHC 32.0 RDW Coeff of June 12.4 Plt Count 276 Immature Gran % (Auto) 0.3 Neut % (Auto) 54.3 Lymph % (Auto) 34.5 Real % (Auto) 9.2 Eos % (Auto) 1.0 Baso % (Auto) 0.7 Neut # (Auto) 3.2 Lymph # (Auto) 2.0 Real # (Auto) 0.5 Eos # (Auto) 0.1 Baso # (Auto) 0.0 Immature Gran # (Auto) 0.0 Sodium 135.8 Potassium 4.06 Chloride 102.5 Carbon Dioxide 29.6 Anion Gap 7.76 BUN 7.2 Creatinine 0.69 Estimated GFR (MDRD) 101.00 BUN/Creatinine Ratio 10.43 Glucose 104.1 Calcium 9.00 Total Bilirubin 0.66 AST 75.2 H ALT 34.0 Alkaline Phosphatase 92.8 Total Protein 7.65 Albumin 4.26 Globulin 3.39 Albumin/Globulin Ratio 1.25 Triglycerides 63.3 Lipase 1792.5 H Urine Color Yellow Urine Clarity Clear Urine pH 7.0 Ur Specific [place] 1.015 Urine Protein Negative Urine Glucose (UA) Negative Urine Ketones Negative Urine Blood 1+ H Urine Nitrite Negative Urine Bilirubin Negative Urine Urobilinogen 0.2 Ur Leukocyte Esterase 2+ H Urine Microscopic RBC 2-5 Urine Microscopic WBC 10-20 Ur Squamous Epith Cells 2-5 Urine Bacteria Trace Urine Test Negative Review Statement Review Statement: I have independently reviewed and interpreted the labs/EKGs/imaging that were ordered by the ER provider. I have reviewed all outside records that are available currently in our EMR including imaging/notes/labs from previous visits. Plan Plan: Plan: 1. Acute Pancreatitis- NPO, NS at 125ml/hr, Dilaudid 1mg Q6H PRN, toradol 30mg Q8H PRN, and T pump PRN for pain control 2. ADHD- chronic, continue home meds 3. Anxiety- chronic-continue home meds DVT Prophylaxis:ambulation Time Spent: Greater than 80 minutes spent with patient, 50% of the time spent with this patient was devoted to counseling and coordination of care. [facility]annin minutes spent discussing advance care planning. Smoking Cessation: 3-10 minutes spent discussing smoking cessation. Disposition: Home with self care [facility] Discussed Plan of Care with Dr. Savage Medications Medication Orders: Medications Ordered Category Date Time Status 0.9 % Sodium Chloride [Saline Flush] Meds 01/07/25 06:44 Active 1 syr IVF PRN PRN Alprazolam [Xanax] Meds 01/07/25 09:42 Active 0.5 mg PO 3XD PRN ANX Anxiety Hydromorphone HCl [Dilaudid 1 mg/ml Syringe] Meds 01/07/25 10:43 Active 1 mg IVP Q6HR PRN Ketorolac Tromethamine [Toradol] Meds 01/07/25 10:44 Active 30 mg IVP Q8H PRN Sodium Chloride 0.9% [Sodium Chloride] 1,000 ml Meds 01/07/25 10:00 Active IV 125 mls/hr dextroamphetamine-amphetamine [Adderall] Meds 01/08/25 09:00 Active 30 mg PO DAILY
[2025-01-07] MEDS: SODIUM CHLORIDE 1,000 ML IV SCH (13:09)
[2025-01-07] MEDS ORDERED: DEXTROSE 50%-WATER ABBOJECT IVP PRN (14:43)
[2025-01-07] MEDS: TORADOL IVP PRN (16:41)
[2025-01-07] MEDS: ZOFRAN SDV IVP PRN (19:49)
[2025-01-08 05:29] LABS: IMMATURE GRANULOCYTE # (AUTO) 0.0 (0.0-1.0); IMMATURE GRANULOCYTE % (AUTO) 0.5 % (0.0-5.0); RDW COEFFICIENT OF VARIATION 12.4 % (11.6-14.8)
[2025-01-08 05:45] LABS: CREATININE 0.58 mg/dL (0.60-1.30)
--- NOTE | 2025-01-08 09:44 | DCSUM ---
Admission Date Admission Date: 01/07/25 Discharge Date Discharge Date: 01/08/25 Admission Diagnosis Admission Diagnosis: 1. Acute Pancreatitis Discharge Diagnosis Discharge Diagnosis: 1. Acute Pancreatitis - Resolved 2. ADHD - chronic, stable 3. Anxiety - chronic, stable Hospital Provider Hospital Provider: NANCY JONES, [facility] Primary Care Physician Primary Care Physician: EDYTA PHELPS Summary of History and Physical Summary of History and Physical: 29 year old female with pmhx of ADHD and anxiety presented to the ER last night with complaints of epigastric abdominal pain and lower back pain that started around 1900 last night. Patient stated pain began immediately upon finishing her [employer]. She took a zofran and some gas-x without any relief. Prior hx of cholecystectomy. ER workup revealed lipase 1792 consistent with pancreatitis. Triglycerides normal at 63. Patient denied any use of alcohol in the ER. She was started on IV fluids and given IV tylenol for the pain. Admitted to [facility] for observation. Currently patient describes the epigastric pain and low back as 8/10 and constant with intermittent sharp/stabbing pains. No nausea at present. Reports she has chronic diarrhea ever since her gallbladder was removed. Denies urinary or vaginal symptoms. Patient again denies any use of alcohol, states she last drank ~ 3 months ago. Urine negative. No fever or chills. Hospital Course Subjective: During stay, patient remained NPO, received IV fluids, zofran for nausea and toradol for pain. Lipase down to 120 this am. No further pain reported and requesting discharge this am. Tolerated bland breakfast this am. Liver enzymes slightly trended up and may be reactive due to acute pancreatitis. Discussed with patient to have PCP recheck labs to ensure enzymes are returning back to normal following this. Discussed to avoid high fat foods and continue bland diet at this time. Follow-up with PCP later this week. Appearance: Pleasant, No Apparent Distress and Alert HEENT: MMM, Supple and No JVD CVS: No Murmur, No Rubs, No Gallop and No JVD Abdomen: Soft, Non-Tender and No Distention Respiratory: No Dyspnea Extremities: No Edema Vital Signs: Most Recent Vital Signs Temperature 98.3 F 01/08/25 05:32 Temperature Source Temporal Artery Scan 01/08/25 05:32 Temperature Source Temporal Artery Scan 01/07/25 06:25 Pulse Rate 83 01/08/25 05:32 Respiratory Rate 18 01/08/25 05:32 Blood Pressure 130/86 01/08/25 05:32 Blood Pressure Mean 100 01/08/25 05:32 Blood Pressure Left Arm 138/75 01/07/25 08:59 Blood Pressure Location Right Arm 01/08/25 05:32 Blood Pressure Position Supine 01/08/25 05:32 O2 Sat by Pulse Oximetry 97 01/08/25 05:32 Oxygen Delivery Method Room Air 01/08/25 06:00 Height 5 ft 7 in 01/07/25 08:59 Weight 93 kg 01/07/25 08:59 Lab Results Last 24 Hours: 01/08/25 05:14 WBC 4.16 L RBC 4.03 L Hgb 11.7 L Hct 36.7 L MCV 91.1 MCH 29.0 MCHC 31.9 RDW Coeff of June 12.4 Plt Count 202 Immature Gran % (Auto) 0.5 Neut % (Auto) 57.6 Lymph % (Auto) 32.2 Woods % (Auto) 8.2 Eos % (Auto) 1.0 Baso % (Auto) 0.5 Neut # (Auto) 2.4 Lymph # (Auto) 1.3 Woods # (Auto) 0.3 L Eos # (Auto) 0.0 Baso # (Auto) 0.0 Immature Gran # (Auto) 0.0 Sodium 134.7 Potassium 3.99 Chloride 107.1 H Carbon Dioxide 25.6 Anion Gap 5.99 BUN 6.5 L Creatinine 0.58 L Estimated GFR (MDRD) 124.00 BUN/Creatinine Ratio 11.20 Glucose 75.3 Calcium 8.30 L Total Bilirubin 0.74 AST 106.7 H D ALT 166.5 H D Alkaline Phosphatase 115.3 Total Protein 6.47 Albumin 3.60 Globulin 2.87 Albumin/Globulin Ratio 1.25 Lipase 107.2 Discharge Instructions Discharge Planning: Discharge Planning > 40 minutes If patient is discharged with left ventricular systolic dysfunction: no Discharged with a beta guerrero? [] If no, why not? [] Discharged with an jessica/arb? [] If no, why not? [] Discharge Medications: Medications at Discharge (Home Meds & RX) alprazolam 0.5 mg tablet 0.5 mg PO 3XD PRN anxiety 04/08/24 dextroamphetamine-amphetamine 30 mg tablet (Adderall) 30 mg PO DAILY 04/08/24 Discharge Plan Discharge Discharge Orders: Discharge Patient (ONCE); Ordered 01/08/25 Ordered By: KATERINE GREWAL Activity Restrictions/Additional Instructions: Diagnosis: Pancreatitis Diet: Low fat Activity as tolerated. No new medications. Follow-up with your primary care provider this week. Have your labs redrawn to monitor your liver enzymes following this. Instructions: Pancreatitis (GEN) Patient Disposition: HOME SELF-CARE Prescriptions: Continued dextroamphetamine-amphetamine [Adderall] 30 mg tablet 30 mg PO DAILY alprazolam 0.5 mg tablet 0.5 mg PO 3XD PRN (Reason: anxiety) Did you review [place] [employer] for ALL controlled substances?: No Discussed opioids are addictive and Narcan is available by prescription or from pharmacy.: No Condition: Stable Referrals: EDYTA PHELPS [Primary Care Provider, [employer] TECHNICIAN] - 01/12/25 9:45 am
[2025-01-08 10:37] VITALS: BP 139/78; PULSE 84; RESP 14; TEMP 98.4
== END 2025-01-08 10:30 | disposition home or self-care (01) ==
LOC: ED 06:15 → MEDSURG B 06:15
PROVIDERS: ADMIT Hospitalist; ATTEND Nurse Practitioner Family
DX: Z51.81 Encounter for therapeutic drug level monitoring; K85.90 Acute pancreatitis without necrosis or infection, unspecified; F90.9 Attention-deficit hyperactivity disorder, unspecified type; Z79.899 Other long term (current) drug therapy; F41.9 Anxiety disorder, unspecified; Z11.3 Encounter for screening for infections with a predominantly sexual mode of transmission